=== PATIENT | female | born 1965 | race Caucasian/White ===

== ENCOUNTER 2019-03-27 13:35 | Day surgery (SDC) | payer OTHER ==
[~2019-03-27] VITALS: Ht 165.1 cm; Wt 129.8 kg
[~2019-03-27 13:35] MED LIST: ATORVASTATIN; CITALOPRAM; DOCUSATE; LANSOPRAZOLE; LISINOPRIL; LOSARTAN; MECLIZINE; METOPROLOL
[2019-03-27 14:04] VITALS: Ht 165.1 cm; Wt 129.8 kg
[2019-03-27 14:16] VITALS: BP 128/67; PULSE 84; RESP 15
[2019-03-27] MEDS ORDERED: PROPOFOL 20 ML ONE ×2 (14:20→14:48)
[2019-03-27 15:18] VITALS: BP 122/57; PULSE 70; RESP 19
== END 2019-03-27 16:26 | disposition home or self-care (01) ==
LOC: GIL 13:35
PROVIDERS: ATTEND Internal Medicine Gastroenterology
DX: Z12.11 Encounter for screening for malignant neoplasm of colon (principal); K64.4 Residual hemorrhoidal skin tags; I10 Essential (primary) hypertension; E78.5 Hyperlipidemia, unspecified; E66.01 Morbid (severe) obesity due to excess calories; Z68.42 Body mass index [BMI] 45.0-49.9, adult
CPT/HCPCS: 45378; Z7610